=== PATIENT | female | born 1985 | race Hispanic/Latino ===

== ENCOUNTER 2017-04-29 23:20 | Emergency (ER) | payer MEDICAID ==
[~2017-04-29 23:20] MED LIST: LEVO500T2 PO
== END 2017-04-30 00:05 | disposition home or self-care (01) ==
LOC: EDH 23:20
DX: J06.9 Acute upper respiratory infection, unspecified (principal); Z72.0 Tobacco use

== ENCOUNTER 2018-06-21 14:48 | Inpatient (IN) | payer MEDICAID ==
[~2018-06-21] VITALS: Ht 172.7 cm; Wt 83.9 kg
[2018-06-21 15:12] LABS: APPEARANCE,URINE Cloudy (CLEAR); BILIRUBIN,URINE Large (NEGATIVE); GLUCOSE, URINE (UA) Negative (NEGATIVE); KETONES,URINE 40 mg/dL (NEGATIVE); LEUKOCYTE ESTERASE ,URINE Moderate (NEGATIVE); NITRATE,URINE Positive (NEGATIVE); OCCULT BLOOD,URINE Negative (NEGATIVE); PROTEIN,URINE POS 1+ mg/dL (NEGATIVE)
[2018-06-21 15:14] LABS: HCG,QUAL RESULT NEGATIVE (NEGATIVE)
[2018-06-21 15:15] LABS: COLOR,URINE BROWN (YELLOW)
[2018-06-21 15:21] LABS: BASOPHILS % (AUTO) 0.4 % (0.0-5.0); EOSINOPHILS % (AUTO) 0.2 % (0.0-8.0); HEMATOCRIT 39.5 % (36-48); LYMPHOCYTES % (AUTO) 10.2 % (21.0-51.0); MEAN CORPUSCULAR HGB CONC 34.6 g/dL (32.0-36.0); MEAN CORPUSCULAR VOLUME 109.8 fL (79-99); MONOCYTES % (AUTO) 7.1 % (3.0-13.0); NEUTROPHILS % (AUTO) 82.1 % (40.0-77.0); NUCLEATED RED BLOOD CELLS 0.1 % (0.0-0.19); PLATELET COUNT (AUTO) 164 K/uL (130-400); RED CELL DISTRIBUTION WIDTH 15.5 % (11.0-15.5); WHITE BLOOD COUNT (AUTO) 11.3 K/uL (4.8-10.8)
[2018-06-21] MEDS ORDERED: FAMOTIDINE/PF 20 MG/2 ML VIAL IV ONE (15:31)
[2018-06-21] MEDS ORDERED: ONDANSETRON HCL 4 MG/2 ML VIAL ONE (15:31)
[2018-06-21 15:33] LABS: BACTERIA,URINE Moderate /HPF (None Seen)
[2018-06-21 15:34] LABS: RBC,URINE 0-1 /HPF (0-1)
[2018-06-21 15:38] LABS: ALBUMIN 3.3 g/dL (3.5-5.0); BILIRUBIN,TOTAL 9.7 mg/dL (0.2-1.0); CREATININE 0.7 mg/dL (0.5-1.5); TOTAL PROTEIN, SERUM 8.9 g/dL (6.0-8.3)
[2018-06-21 15:39] LABS: POTASSIUM 2.7 mmol/L (3.5-5.1)
[2018-06-21] MEDS ORDERED: POTASSIUM CHLORIDE 10% ELIXIR 20 MEQ/15 ML UDCUP ONE (16:00)
[2018-06-21] MEDS ORDERED: CEFTRIAXONE SODIUM 1 GM ONE (16:11)
[2018-06-21 16:13] LABS: INR 1.13 (0.85-1.15); PARTIAL THROMBOPLASTIN TIME 29.6 SEC (26.3-35.5); PROTHROMBIN TIME 11.8 SEC (9.6-11.6)
[2018-06-21] MEDS ORDERED: LIDOCAINE HCL-MPF 1% 2ML VIAL IVP PRN (18:15)
[2018-06-21] MEDS ORDERED: POTASSIUM CHLORIDE 10% ELIXIR 20 MEQ/15 ML UDCUP PO PRN (18:15)
[2018-06-21] MEDS ORDERED: POTASSIUM CHLORIDE 20MEQ/100ML 100 ML IV PRN (18:15)
[2018-06-21] MEDS ORDERED: MAGNESIUM 2GM PREMIX 50ML 50 ML IV PRN (18:15)
[2018-06-21] MEDS: SODIUM CHLORIDE 0.9% 1000ML 1,000 ML IV SCH (18:25)
[2018-06-21] MEDS ORDERED: ONDANSETRON HCL 4 MG/2 ML VIAL IV PRN (18:30)
[2018-06-21] MEDS ORDERED: ACETAMINOPHEN 325 MG TAB PO PRN (18:30)
[2018-06-21 19:15] LABS: CRP QUANTITATIVE 41.7 mg/L (0.00-9.0); MAGNESIUM 1.4 mg/dL (1.80-2.40)
[2018-06-21] MEDS ORDERED: ZOSYN 3.375GM+NS 50ML 50 ML IV ONE (20:35)
[2018-06-21] MEDS: FAMOTIDINE 20MG TAB 20 MG TAB PO SCH (21:00)
[2018-06-21] MEDS: ZOSYN 3.375GM+NS 50ML 50 ML IV SCH (21:00)
[2018-06-21 21:45] VITALS: BP 132/84
[2018-06-21 22:09] LABS: AMPHET/METH SCREEN,URINE NEGATIVE (NEGATIVE); BARBITURATE SCREEN, URINE NEGATIVE (NEGATIVE); BENZODIAZEPINES SCREEN,URINE NEGATIVE (NEGATIVE); CANNABINOID SCREEN,URINE NEGATIVE (NEGATIVE); COCAINE SCREEN,URINE NEGATIVE (NEGATIVE); OPIATE SCREEN,URINE NEGATIVE (NEGATIVE); PHENCYCLIDINE SCREEN,URINE NEGATIVE (NEGATIVE)
[2018-06-21] MEDS: POTASSIUM CHLORIDE 20 MEQ ERTAB PO PRN (23:06)
[2018-06-21 23:50] VITALS: BP 124/73
[2018-06-22] MEDS: SODIUM CHLORIDE 0.9% 1000ML 1,000 ML IV SCH ×2 (01:03→11:48)
[2018-06-22] MEDS: POTASSIUM CHLORIDE 20 MEQ ERTAB PO PRN ×2 (01:10→09:05)
[2018-06-22] MEDS ORDERED: ACETAMINOPHEN EXTRA STRENGTH 500 MG TABLET ONE (03:54)
[2018-06-22] MEDS: ZOSYN 3.375GM+NS 50ML 50 ML IV SCH ×3 (03:57→21:28)
[2018-06-22 04:38] VITALS: BP 128/77
[2018-06-22 04:38] LABS: BASOPHILS % (AUTO) 0.7 % (0.0-5.0); EOSINOPHILS % (AUTO) 0.4 % (0.0-8.0); HEMATOCRIT 32.8 % (36-48); LYMPHOCYTES % (AUTO) 14.1 % (21.0-51.0); MEAN CORPUSCULAR HEMOGLOBIN 38.8 pg (27.0-33.0); MEAN CORPUSCULAR HGB CONC 35.1 g/dL (32.0-36.0); MEAN CORPUSCULAR VOLUME 110.7 fL (79-99); MONOCYTES % (AUTO) 8.3 % (3.0-13.0); NEUTROPHILS % (AUTO) 76.5 % (40.0-77.0); NUCLEATED RED BLOOD CELLS 0.1 % (0.0-0.19); PLATELET COUNT (AUTO) 149 K/uL (130-400); RED BLOOD CELL COUNT(AUTO) 2.96 MIL/uL (4.00-5.50); RED CELL DISTRIBUTION WIDTH 15.4 % (11.0-15.5); WHITE BLOOD COUNT (AUTO) 8.4 K/uL (4.8-10.8)
[2018-06-22 04:55] LABS: ALBUMIN 2.7 g/dL (3.5-5.0); BILIRUBIN,TOTAL 6.3 mg/dL (0.2-1.0); CREATININE 0.7 mg/dL (0.5-1.5); MAGNESIUM 2.3 mg/dL (1.80-2.40); POTASSIUM 3.8 mmol/L (3.5-5.1); TOTAL PROTEIN, SERUM 7.5 g/dL (6.0-8.3)
[2018-06-22 07:46] VITALS: BP 115/70
[2018-06-22] MEDS: FAMOTIDINE 20MG TAB 20 MG TAB PO SCH ×2 (09:05→21:28)
[2018-06-22] MEDS: ENOXAPARIN SODIUM 30 MG/0.3 ML SQ SCH (09:06)
[2018-06-22 11:07] VITALS: BP 115/76
--- NOTE | 2018-06-22 15:32 | NUR ---
flip note met with patient and states resides at home with her mother and father and 2 children. [facility] she is independent with adls and ambulation. no dme. [facility] dc plan is back to home. no dc needs. Addendum: 06/22/18 at 1533 by AILEEN STONE CM Amended: Links added.
--- NOTE | 2018-06-22 16:00 | NUR ---
HUNGRY PATIENT STATES HUNGER. CONTINUES ON CLEAR LIQUID DIET ORDERED BY MD. HOSPITALIST PENDING TO ROUND ON PATIENT. NO ABDOMINAL PAIN NOR NAUSEA AND VOMITING. WILL CONTINUE TO MONITOR PT CLOSELY, MD TO ROUND ON PATIENT.
[2018-06-22 16:28] VITALS: BP 126/76
[2018-06-22] MEDS: ACETAMINOPHEN 325 MG TAB PO PRN ×2 (16:50→22:57)
[2018-06-22 19:48] VITALS: BP 118/76
[2018-06-22 23:10] VITALS: BP 117/69
[2018-06-23] MEDS: SODIUM CHLORIDE 0.9% 1000ML 1,000 ML IV SCH ×2 (00:56→12:24)
[2018-06-23 03:17] VITALS: BP 120/72
[2018-06-23] MEDS: ZOSYN 3.375GM+NS 50ML 50 ML IV SCH (05:05)
[2018-06-23 08:00] VITALS: BP 133/83
[2018-06-23] MEDS: FAMOTIDINE 20MG TAB 20 MG TAB PO SCH ×2 (08:50→21:15)
[2018-06-23] MEDS: ENOXAPARIN SODIUM 30 MG/0.3 ML SQ SCH (08:51)
[2018-06-23] MEDS: ACETAMINOPHEN 325 MG TAB PO PRN (08:58)
[2018-06-23] MEDS ORDERED: MEROPENEM 1 GM VIAL IVP SCH (09:30)
[2018-06-23 11:00] VITALS: BP 118/78
[2018-06-23 11:59] LABS: ALBUMIN 2.4 g/dL (3.5-5.0); BILIRUBIN,TOTAL 4.1 mg/dL (0.2-1.0); CREATININE 0.7 mg/dL (0.5-1.5); POTASSIUM 4.3 mmol/L (3.5-5.1); TOTAL PROTEIN, SERUM 6.8 g/dL (6.0-8.3)
[2018-06-23 16:00] VITALS: BP 116/76
[2018-06-23 21:12] VITALS: BP 123/77
[2018-06-23] MEDS: MEROPENEM 1 GM VIAL IVP SCH (21:15)
[2018-06-24] VITALS (7 sets, daily range): BP systolic 113–147; BP diastolic 68–88
[2018-06-24] MEDS: MEROPENEM 1 GM VIAL IVP SCH ×3 (04:11→20:44)
[2018-06-24 05:03] LABS: ALBUMIN 2.5 g/dL (3.5-5.0); BILIRUBIN,TOTAL 3.3 mg/dL (0.2-1.0); CREATININE 0.7 mg/dL (0.5-1.5); POTASSIUM 3.8 mmol/L (3.5-5.1); TOTAL PROTEIN, SERUM 7.1 g/dL (6.0-8.3)
[2018-06-24] MEDS: SODIUM CHLORIDE 0.9% 1000ML 1,000 ML IV SCH (06:04)
--- NOTE | 2018-06-24 08:00 | NUR ---
DR. GURDEEP MACKENZIE IN TO SEE PATIENT. HAS REQUESTED TO TRANSFER PATIENT TO HIS SERVICES. HOSPITALIST HAS BEEN MADE AWARE.
[2018-06-24] MEDS: FAMOTIDINE 20MG TAB 20 MG TAB PO SCH ×2 (08:22→20:45)
[2018-06-24] MEDS: ENOXAPARIN SODIUM 30 MG/0.3 ML SQ SCH (08:22)
[2018-06-24] MEDS: FOLIC ACID 1 MG TABLET PO SCH (15:47)
[2018-06-24] MEDS: THIAMINE HCL 100 MG TABLET PO SCH (15:47)
--- NOTE | 2018-06-24 17:45 | NUR ---
Nutrition screen: Nutrition notification for poor appetite. Pt admitted for elevated LFT's, hypokalemia, UTI, dehydration. Pt currently on regular diet therapy with good oral intake. Pt with no nutritional concerns with n/v/d, chewing or swallowing difficulties. Recommend continuation of current diet therapy. Consult RD as nutrition concerns arise.
[2018-06-25] MEDS: SODIUM CHLORIDE 0.9% 1000ML 1,000 ML IV SCH ×2 (00:42→10:32)
[2018-06-25 04:00] VITALS: BP 127/83
[2018-06-25 04:27] LABS: BASOPHILS % (AUTO) 0.4 % (0.0-5.0); EOSINOPHILS % (AUTO) 0.5 % (0.0-8.0); HEMATOCRIT 34.5 % (36-48); LYMPHOCYTES % (AUTO) 15.5 % (21.0-51.0); MEAN CORPUSCULAR HEMOGLOBIN 38.3 pg (27.0-33.0); MEAN CORPUSCULAR HGB CONC 34.9 g/dL (32.0-36.0); MEAN CORPUSCULAR VOLUME 109.7 fL (79-99); MONOCYTES % (AUTO) 7.8 % (3.0-13.0); NEUTROPHILS % (AUTO) 75.8 % (40.0-77.0); NUCLEATED RED BLOOD CELLS 0.2 % (0.0-0.19); PLATELET COUNT (AUTO) 178 K/uL (130-400); RED BLOOD CELL COUNT(AUTO) 3.14 MIL/uL (4.00-5.50); RED CELL DISTRIBUTION WIDTH 15.8 % (11.0-15.5); WHITE BLOOD COUNT (AUTO) 8.8 K/uL (4.8-10.8)
[2018-06-25 04:37] LABS: CREATININE 0.6 mg/dL (0.5-1.5); POTASSIUM 3.7 mmol/L (3.5-5.1)
[2018-06-25] MEDS: MEROPENEM 1 GM VIAL IVP SCH ×2 (05:00→11:58)
[2018-06-25 05:15] LABS: HEPATITIS Bs ANTIGEN SCREEN P Negative (Negative)
[2018-06-25 08:20] VITALS: BP 126/87
[2018-06-25] MEDS ORDERED: KETOROLAC TROMETHAMINE 15MG/ML IV SCH (10:30)
[2018-06-25] MEDS: FAMOTIDINE 20MG TAB 20 MG TAB PO SCH (10:32)
[2018-06-25] MEDS: ENOXAPARIN SODIUM 30 MG/0.3 ML SQ SCH (10:32)
[2018-06-25] MEDS ORDERED: KETOROLAC TROMETHAMINE 15MG/ML ONE (10:38)
[2018-06-25] MEDS: FOLIC ACID 1 MG TABLET PO SCH (10:39)
[2018-06-25] MEDS: THIAMINE HCL 100 MG TABLET PO SCH (10:39)
[2018-06-25] MEDS ORDERED: SIMETHICONE 40 MG/0.6 ML ML PO PRN (10:58)
[2018-06-25 11:46] VITALS: BP 139/84
[2018-06-25] MEDS ORDERED: KETOROLAC TROMETHAMINE 15MG/ML IV PRN (13:00)
--- NOTE | 2018-06-25 15:00 | NUR ---
FAMILY GOING TO REGISTER PATIENT AT [facility] GAVE ENVELOPE AND ORDERS TO PT'S SISTER TO REGISTER HER AT [facility]. ADIVSED HER IT IS POSSIBLE THAT [facility] MAY BE CLOSED BY THE TIME REGISTRATION IS COMPLETE, VERBALIZED UNDERSTANDINT
[2018-06-25 16:21] VITALS: BP 144/110
[2018-06-25] MEDS ORDERED: TYL3 PO (16:45)
[2018-06-25 16:56] VITALS: BP 139/88
--- NOTE | 2018-06-25 17:45 | NUR ---
DC PLAN: FOLLOW UP W [facility] IN AM FOR APPT TIME FAMILY BACK WITH PROOF OF REGISTRATION FOR [facility] . STATES THE SHUTTLE HAND SAID PT NEEDED TO CALL [facility] IN AM FOR APPOINTMENT TIME. PT WANTING TO LEAVE THIS AM. CALL TO [facility], STATES PT CAN GO TO THE [facility] FROM HOME IF PT HAD ALEADY BEEN REGISTERED. CALL MADE TO JUDY TRIVEDI FOR CONFIRMAITON- REGISTRATION INDICATIONS NO FURTHER PRE AUTH REQUIRED, JUST APPT TIME NEEDED. ADIVSED PT AND PRIMAMRY NURSE THAT PT COULD BE DISCHARGED THIS EVENING TO FOLLOW UP WITH PHONE CALL IN AM FOR APPT TIME TOMORROW. PHONE NUMBER OF [facility] WRITTEN ON THE REGISTRATION FORM
== END 2018-06-25 18:23 | disposition home or self-care (01) | DRG 463 ==
LOC: EDH 14:48 → EDHIP 14:49 → 4AH 22:08
PROVIDERS: ADMIT Internal Medicine; ATTEND Internal Medicine
DX: N39.0 Urinary tract infection, site not specified (principal); K76.0 Fatty (change of) liver, not elsewhere classified; E83.42 Hypomagnesemia; E87.1 Hypo-osmolality and hyponatremia; E86.0 Dehydration; E87.6 Hypokalemia; B96.20 Unspecified Escherichia coli [E. coli] as the cause of diseases classified elsewhere; Z16.24 Resistance to multiple antibiotics; Z68.28 Body mass index [BMI] 28.0-28.9, adult; E66.9 Obesity, unspecified; F17.210 Nicotine dependence, cigarettes, uncomplicated; Z16.12 Extended spectrum beta lactamase (ESBL) resistance; Z82.0 Family history of epilepsy and other diseases of the nervous system; Z83.3 Family history of diabetes mellitus; Z82.5 Family history of asthma and other chronic lower respiratory diseases; Z82.49 Family history of ischemic heart disease and other diseases of the circulatory system
CPT/HCPCS: 36415; 74018; 76700; 80048; 80053; 80305; 81001; 81025; 83605; 83690; 83735; 84132; 84145; 85025; 85610; 85651; 85730; 86140; 87040; 87077; 87088; 87186; 87340; 87522; 93005; A4218; G0378; J0696; J1650; J1885; J2185; J2405; J2543; J3475; J3490; J7030

== ENCOUNTER 2018-07-24 17:50 | Emergency (ER) | payer MEDICAID ==
[~2018-07-24 17:50] MED LIST changes: -LEVO500T2 PO; +TYL3 PO
[2018-07-24 18:18] LABS: APPEARANCE,URINE Clear (CLEAR); BILIRUBIN,URINE Large (NEGATIVE); COLOR,URINE Orange (YELLOW); GLUCOSE, URINE (UA) Negative (NEGATIVE); KETONES,URINE >=80 mg/dL (NEGATIVE); LEUKOCYTE ESTERASE ,URINE Small (NEGATIVE); NITRATE,URINE Positive (NEGATIVE); OCCULT BLOOD,URINE Negative (NEGATIVE); PH,URINE 7.5 (5.0-8.0); PROTEIN,URINE POS 1+ mg/dL (NEGATIVE)
[2018-07-24 18:19] LABS: HCG,QUAL RESULT NEGATIVE (NEGATIVE); MEAN CORPUSCULAR HEMOGLOBIN 37.4 pg (27.0-33.0); MEAN CORPUSCULAR VOLUME 106.8 fL (79-99); NUCLEATED RED BLOOD CELLS 0.1 % (0.0-0.19); WHITE BLOOD COUNT (AUTO) 4.2 K/uL (4.8-10.8)
[2018-07-24 18:25] LABS: AMPHET/METH SCREEN,URINE NEGATIVE (NEGATIVE); BARBITURATE SCREEN, URINE NEGATIVE (NEGATIVE); BENZODIAZEPINES SCREEN,URINE NEGATIVE (NEGATIVE); CANNABINOID SCREEN,URINE NEGATIVE (NEGATIVE); COCAINE SCREEN,URINE NEGATIVE (NEGATIVE); OPIATE SCREEN,URINE NEGATIVE (NEGATIVE); PHENCYCLIDINE SCREEN,URINE NEGATIVE (NEGATIVE)
[2018-07-24 18:28] LABS: BACTERIA,URINE Moderate /HPF (None Seen); MUCUS,URINE Moderate LPF (None Seen); RBC,URINE None Seen /HPF (0-1)
[2018-07-24 18:32] LABS: ALBUMIN 3.9 g/dL (3.5-5.0); BILIRUBIN,TOTAL 8.6 mg/dL (0.2-1.0); CREATININE 0.8 mg/dL (0.5-1.5); TOTAL PROTEIN, SERUM 9.2 g/dL (6.0-8.3)
[2018-07-24 18:36] LABS: BASOPHILS % (AUTO) 0.4 % (0.0-5.0); EOSINOPHILS % (AUTO) 0.3 % (0.0-8.0); HEMATOCRIT 36.1 % (36-48); LYMPHOCYTES % (AUTO) 20.6 % (21.0-51.0); MONOCYTES % (AUTO) 6.5 % (3.0-13.0); NEUTROPHILS % (AUTO) 72.2 % (40.0-77.0); PLATELET COUNT (AUTO) 38 K/uL (130-400); POTASSIUM 2.5 mmol/L (3.5-5.1); RED BLOOD CELL COUNT(AUTO) 3.38 MIL/uL (4.00-5.50); RED CELL DISTRIBUTION WIDTH 14.7 % (11.0-15.5)
[2018-07-24] MEDS ORDERED: ONDANSETRON HCL 4 MG/2 ML VIAL ONE (18:46)
[2018-07-24] MEDS ORDERED: CEFTRIAXONE SODIUM 1 GM ONE (18:47)
[2018-07-24] MEDS ORDERED: POTASSIUM CHLORIDE 20 MEQ ERTAB PO ONE (18:47)
== END 2018-07-24 19:15 | disposition home or self-care (01) ==
LOC: EDH 17:50
DX: N39.0 Urinary tract infection, site not specified (principal); K70.30 Alcoholic cirrhosis of liver without ascites; Z72.0 Tobacco use
CPT/HCPCS: 36415; 80053; 80305; 81001; 81025; 85025; 93005; 96361; 96374; 96375; 99285; J0696; J2405

== ENCOUNTER 2019-01-16 19:41 | Emergency (ER) | payer MEDICAID ==
[2019-01-16] MEDS ORDERED: ONDANSETRON HCL 4 MG/2 ML VIAL ONE (19:56)
[2019-01-16] MEDS ORDERED: SODIUM CHLORIDE 0.9% 1000ML 1,000 ML IV ONE (19:56)
[2019-01-16 20:18] LABS: BASOPHILS % (AUTO) 0.3 % (0.0-5.0); HEMATOCRIT 27.7 % (36-48); LYMPHOCYTES % (AUTO) 21.2 % (21.0-51.0); MEAN CORPUSCULAR HEMOGLOBIN 29.8 pg (27.0-33.0); MEAN CORPUSCULAR HGB CONC 33.7 g/dL (32.0-36.0); MEAN CORPUSCULAR VOLUME 88.3 fL (79-99); MONOCYTES % (AUTO) 5.6 % (3.0-13.0); NEUTROPHILS % (AUTO) 72.9 % (40.0-77.0); NUCLEATED RED BLOOD CELLS 0.1 % (0.0-0.19); PLATELET COUNT (AUTO) 80 K/uL (130-400); RED BLOOD CELL COUNT(AUTO) 3.13 MIL/uL (4.00-5.50); RED CELL DISTRIBUTION WIDTH 19.2 % (11.0-15.5); WHITE BLOOD COUNT (AUTO) 6.2 K/uL (4.8-10.8)
[2019-01-16 20:36] LABS: APPEARANCE,URINE SL CLOUDY (CLEAR); BILIRUBIN,URINE MODERATE (NEGATIVE); COLOR,URINE ORANGE (YELLOW); GLUCOSE, URINE (UA) NEGATIVE (NEGATIVE); KETONES,URINE NEGATIVE (NEGATIVE); LEUKOCYTE ESTERASE ,URINE NEGATIVE (NEGATIVE); NITRATE,URINE NEGATIVE (NEGATIVE); OCCULT BLOOD,URINE NEGATIVE (NEGATIVE); PROTEIN,URINE TRACE mg/dL (NEGATIVE); UROBILINOGEN,URINE >=8.0 mg/dL (0.2-1.0)
[2019-01-16 20:37] LABS: PLATELET MORPHOLOGY COMMENT DECREASED
[2019-01-16 20:39] LABS: ALBUMIN 2.1 g/dL (3.5-5.0); BILIRUBIN,TOTAL 3.3 mg/dL (0.2-1.0); CREATININE 0.8 mg/dL (0.5-1.5); TOTAL PROTEIN, SERUM 8.6 g/dL (6.0-8.3)
[2019-01-16 20:47] LABS: POTASSIUM 2.9 mmol/L (3.5-5.1)
[2019-01-16 20:50] LABS: RBC,URINE 0-1 /HPF (0-1); WBC,URINE 0-1 /HPF (0-1)
[2019-01-16 20:51] LABS: BACTERIA,URINE Rare /HPF (None Seen); MUCUS,URINE Rare LPF (None Seen); SQUAMOUS EPITHELIAL CELL,UR Rare /HPF (0-2)
[2019-01-16] MEDS ORDERED: POTASSIUM BICARB/CIT AC 25 MEQ TABLET.EFF ONE (21:21)
== END 2019-01-16 22:21 | disposition home or self-care (01) ==
LOC: EDH 19:41
DX: K29.00 Acute gastritis without bleeding (principal); Z72.0 Tobacco use; Z98.890 Other specified postprocedural states
CPT/HCPCS: 36415; 80053; 81001; 81025; 85025; 96361; 96374; 99284; J2405; J7030

== ENCOUNTER → 2020-01-19 | Outpatient (CLI) | payer MEDICAID | END | disposition home or self-care (01) | LOC: RAH 08:39 | PROVIDERS: ATTEND Internal Medicine | DX: K80.20 Calculus of gallbladder without cholecystitis without obstruction (principal); J90 Pleural effusion, not elsewhere classified; R60.0 Localized edema; K74.60 Unspecified cirrhosis of liver; K76.6 Portal hypertension | CPT/HCPCS: 76700; 93925; 93970 ==